=== PATIENT | female | born 1935 | race African-American/Black ===

== ENCOUNTER 2018-05-04 13:02 | Emergency (ER) | payer MEDICARE ==
[2018-05-04] MEDS ORDERED: Morphine 4 MG/ML Carpuject ONE (13:51)
[2018-05-04 14:14] LABS: Bilirubin Negative (Negative); Blood, Urine Trace (Negative); Glucose, Urine (Dipstick) Negative (Negative); Leukocyte Large (Negative); Nitrite Negative (Negative); Protein, Urine (Dipstick) Trace mg/dL (Neg-Trace); Urobilinogen 0.2 mg/dL (0.2-1.0)
[2018-05-04 14:17] LABS: Clarity SL HAZY (Clear)
[2018-05-04 14:31] LABS: Bacteria/HPF 2+ HPF (None Seen); RBC/HPF 0-3 HPF (0-3); Squamous Epithelial 0-3 HPF (0-3)
--- NOTE | 2018-05-04 14:38 | CT ---
CT OF THE ABDOMEN AND PELVIS WITHOUT CONTRAST: COMPARISON: None. HISTORY: Right-sided flank pain for 3 days. TECHNIQUE: Multiple contiguous axial images were obtained in a CT of the abdomen and pelvis without contrast. C oronal reformats were performed. FINDINGS: There is a 2.7 cm hypodensity in the right kidney which likely represents a cyst. No calcifications are seen in either kidney. There is a 3.9 cm cyst in the left kidney which likely represents a cyst. Hypodensities in the liver measuring up to 2.1 cm in size likely represent cysts. The patient is status post cholecystectomy. The adrenal glands, spleen, and pancreas are unremarkabl e, although evaluation is limited on this noncontrast examination. No free air, free fluid, or stranding changes are seen in the abdomen or pelvis. The patient is stat us post hysterectomy. The large and small bowel are unremarkable. Atherosclerotic calcifications ar e seen in the aorta. No abdominal or pelvic lymphadenopathy is seen. Degenerative changes are seen in the spine. The visualized inferior thorax and abdominal wall soft t issues are unremarkable. IMPRESSION: 1. Bilateral renal cysts. 2. Hepatic cysts. POS: [facility]
== END 2018-05-04 14:50 | disposition home or self-care (01) ==
LOC: NAV ERS 13:02
DX: S33.5XXA Sprain of ligaments of lumbar spine, initial encounter (principal); I48.91 Unspecified atrial fibrillation; I11.0 Hypertensive heart disease with heart failure; I50.9 Heart failure, unspecified; Z79.899 Other long term (current) drug therapy; X58.XXXA Exposure to other specified factors, initial encounter
CPT/HCPCS: 74176; 81003; 81015; 87086; 96372; J2270

== ENCOUNTER 2021-12-03 12:30 | Emergency (ER) | payer MEDICARE | END 2021-12-03 13:45 | disposition home or self-care (01) | LOC: NAV ERS 12:30 | DX: M10.9 Gout, unspecified (principal); M79.672 Pain in left foot; I11.0 Hypertensive heart disease with heart failure; I50.9 Heart failure, unspecified; I48.91 Unspecified atrial fibrillation; Z79.899 Other long term (current) drug therapy ==